=== PATIENT | female | born 1935 | race Caucasian/White ===

== ENCOUNTER 2021-02-24 17:21 | Inpatient (IN) | payer MEDICARE, OTHER ==
[~2021-02-24] VITALS: Ht 152.4 cm; Wt 51.3 kg
--- NOTE | 2021-02-24 17:43 | RAD ---
Single view chest dated 02/24/2021. No comparison available. Clinical data indication: Altered mental status. FINDINGS: Single upright portable exam performed. Heart and mediastinal contours are within normal limits. Lung s are somewhat hyperinflated but otherwise clear. No consolidation or pleural effusion. Calcified rig ht hilar lymph nodes. No pneumothorax. IMPRESSION: No acute radiographic abnormality. Electronically signed by: Aj Simental MD (02/24/2021 5:41 PM) [id number]
--- NOTE | 2021-02-24 17:48 | PHYS DOC ---
General Adult EDM: Chief Complaint: ALTERED MENTAL STATUS HPI: HPI: 85-year-old female presents via EMS for altered mental status. The patient is not able to give any history so the entire history comes from EMS and family. The patient signed herself out of the nursing facility 1 and half weeks ago. Osvaldo queen felt like she did not need to be there anymore. She has declined since that time. The patient has hardly had much to eat or drink starting yesterday and then again today. She has been acting more altered and saying the same thing over and over again. No reliable last known well. Patient is reported to have diabetes and CHF history. Family has been giving her medicines based on looking at [employer] for advice. The patient had a fall 1 week ago. No other reported falls or trauma. No other history is available. (ALYCIA GROVER DO) Review of Systems: Review of Systems: Unable to perform due to patient not answering questions. (ALYCIA GROVER DO) Physical Exam: PE: Constitutional: Well developed, well nourished, no acute distress. [] HENT: Normocephalic, atraumatic, scars on face and forehead. Bilateral external ears normal, oropharynx moist, no oral exudates, nose normal. [] Eyes: PERRLA, EOMI, conjunctiva normal, no discharge. [] Neck: No tenderness [] Cardiovascular: Heart rate 82, regular rhythm, no murmur [] Lungs & Thorax: Bilateral breath sounds clear to auscultation [] Abdomen: Bowel sounds normal, soft, no tenderness, no masses, no pulsatile masses. [] Skin: Warm, dry, no erythema, no rash. [] Back: No tenderness, no CVA tenderness. [] Extremities: No tenderness, no cyanosis, no clubbing, no edema. [] Neurologic: Retracts to pain, moans, occasionally repeats the same phrase. [] Psychologic: Unable to assess [] (ALYCIA GROVER DO) EKG: EKG: [] (ALYCIA GROVER DO) Radiology/Procedures: Radiology/Procedures: [] (ALYCIA GROVER DO) Heart Score: C/O Chest Pain: N/A Risk Factors: Risk Factors: DM, Current or recent (<one month) smoker, HTN, HLP, family history of CAD, obesity. Risk Scores: Score 0 - 3: 2.5% MACE over next 6 weeks - Discharge Home Score 4 - 6: 20.3% MACE over next 6 weeks - Admit for Clinical Observation Score 7 - 10: 72.7% MACE over next 6 weeks - Early Invasive Strategies (ALYCIA GROVER DO) Course & Med Decision Making: Course & Med Decision Making Pertinent Labs and Imaging studies reviewed. (See chart for details) The patient's work-up is pending. I am signing the patient out to Dr. Barbour at 1800. [] (ALYCIA GROVER DO) Course & Med Decision Making Patient's care taken over at checkout. Patient seems a little altered but can answer questions appropriately. Head CT with no acute findings. CT of the chest abdomen and pelvis without contrast was obtained due to patient's iodine allergy and was notable for pulmonary edema possibly in the chest, very large volume of stool, granulomatous disease, possible cirrhosis. Urinalysis notable for hyponatremia and hyperkalemia, CHEPE and elevated BUN with hypermagnesemia. Started on IV fluids. Given patient's course of mild confusion over the last few days and abnormal electrolytes with no obvious cause as of yet sepsis was added to the differential diagnosis as well as hypothyroidism and adrenal insufficiency. Appropriate cultures obtained, started on antibiotics and discussed patient with Dr. Murdock the trademark attorney who agreed that she should be admitted here to the hospital for further evaluation and treatment. (CHUCK BARBOUR MD) Dragon Disclaimer: Dragon Disclaimer: This electronic medical record was generated, in whole or in part, using a voice recognition dictation system. (ALYCIA GROVER DO) Departure Departure: Referrals: IVIS LAMAR MD (PCP) ALYCIA GROVER DO Feb 24, 2021 17:48 CHUCK BARBOUR MD Feb 24, 2021 23:12
--- NOTE | 2021-02-24 17:48 | EKG ---
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
--- NOTE | 2021-02-24 18:03 | RAD ---
CT head without contrast dated 02/24/2021. No comparison available. CLINICAL INDICATION: Altered mental status. Recent fall. TECHNIQUE: Contiguous axial imaging the head was performed from skull base to vertex. No contrast administered. One or more of the following individualized dose reduction techniques were utilized for this examinat ion: 1. Automated exposure control 2. Adjustment of the mA and/or kV according to patient size 3. Use of iterative reconstruction technique. FINDINGS: Ventricles and sulci are mildly prominent for age. No midline shift or mass effect. Mild patchy low d ensity in the deep/subcortical periventricular white matter. No hemorrhage or extra-axial collection. Posterior fossa and brainstem unremarkable. Visualized paranasal sinuses and mastoid air cells are grossly clear. No apparent calvarial abnormali ty. IMPRESSION: 1. No evidence of acute intracranial hemorrhage or mass. 2. Mild chronic small vessel ischemic changes and atrophy. Electronically signed by: Aj Simental MD (02/24/2021 6:00 PM) [id number]
[2021-02-24 18:25] LABS: BASO % 0 % (0-3); EOS # 0.1 x10^3/uL (0.0-0.7); EOS % 2 % (0-3); HEMATOCRIT 38.2 % (36.0-47.0); HEMOGLOBIN 12.9 g/dL (12.0-15.5); LYMPH # 1.1 x10^3/uL (1.0-4.8); LYMPH % 15 % (24-48); MEAN CORPUSCULAR HEMOGLOBIN 35 pg (25-35); MEAN CORPUSCULAR HGB CONC 34 g/dL (31-37); MEAN CORPUSCULAR VOLUME 103 fL (79-100); MONO # 0.8 x10^3/uL (0.0-1.1); MONO % 10 % (0-9); NEUT # 5.7 x10^3uL (1.8-7.7); NEUT % 73 % (31-73); PLATELET COUNT 116 x10^3/uL (140-400); RED BLOOD COUNT 3.72 x10^6/uL (3.50-5.40); RED CELL DISTRIBUTION WIDTH 13.8 % (11.5-14.5); WHITE BLOOD COUNT 7.7 x10^3/uL (4.0-11.0)
[2021-02-24 18:32] LABS: BILIRUBIN,URINE NEG (NEG); CLARITY,URINE CLEAR; COLOR,URINE YELLOW; GLUCOSE,URINE NEG (NEG); NITRITE,URINE NEG (NEG)
[2021-02-24 18:35] LABS: CALCIUM 8.9 mg/dL (8.5-10.1); GFR 16.8
[2021-02-24 18:36] LABS: RBC,URINE 0 /HPF (0-2)
[2021-02-24 18:37] LABS: BACTERIA,URINE 0 /HPF (0-FEW); SQUAMOUS EPITHELIAL CELL,UR OCC /LPF
[2021-02-24 18:41] LABS: ALBUMIN 3.4 g/dL (3.4-5.0); ALBUMIN/GLOBULIN RATIO 0.7 (1.0-1.7); TOTAL BILIRUBIN 0.9 mg/dL (0.2-1.0); TOTAL PROTEIN 8.3 g/dL (6.4-8.2)
[2021-02-24 18:46] LABS: CREATININE 2.7 mg/dL (0.6-1.0)
[2021-02-24 18:47] LABS: POTASSIUM 5.5 mmol/L (3.5-5.1)
[2021-02-24] MEDS ORDERED: IV RINGERS SOLUTION,LACTATED 1,000 ML IV ONE (21:00)
--- NOTE | 2021-02-24 22:38 | RAD ---
EXAM: CT CHEST, ABDOMEN, AND PELVIS WITHOUT CONTRAST INDICATION: Shortness of breath, falls, constipation COMPARISON: None TECHNIQUE: Helical CT imaging performed of the chest, abdomen and pelvis without the use of intraveno us contrast. Sagittal and coronal reformats were obtained. One or more of the following individualized dose reduction techniques were utilized for this examinat ion: 1. Automated exposure control 2. Adjustment of the mA and/or kV according to patient size 3. Use of iterative reconstruction technique. FINDINGS: CHEST: Thyroid gland and thoracic inlet: Thyroid gland is not visualized. No lymphadenopathy of the thoracic inlet. Heart and great vessels: Heart is normal in size. There are coronary artery calcifications. No perica rdial effusion. Thoracic aorta is normal in caliber. There is moderate calcified atherosclerosis in t he thoracic aorta clear. The left subclavian artery origin. Mediastinum and mustapha: There are calcified mediastinal and hilar lymph nodes. Lungs and pleura: Evaluation of the lungs limited by motion artifact. There is some interlobular sept al thickening and groundglass opacities in the apices suspicious for mild interstitial pulmonary kely a. Airways are thickened. No pleural effusion. There is a calcified granuloma in the right upper lobe . Chest wall and axillae: Chest wall is unremarkable. No axillary lymphadenopathy. Bones: No acute osseous abnormality. ABDOMEN AND PELVIS: Liver: There are multiple cysts in the right hepatic lobe. There are scattered hepatic granulomas. Croft ggestion of mild nodularity of the surface of the liver. Small amount of perihepatic fluid anteriorly . Gallbladder/Biliary Tree: There are surgical clips in the gallbladder fossa. Bile ducts are unremarka ble. Pancreas: Mild pancreatic atrophy. Spleen: There are calcified splenic granulomas. The spleen is enlarged measuring 13 cm. Adrenal Glands: Normal. Kidneys/Ureters/Bladder: Kidneys are normal in size. No hydronephrosis. Bilateral extrarenal pelvis disease. Ureters are nondilated. Urinary bladder is mildly distended. Reproductive Organs: Uterus is surgically absent. No adnexal mass. Stomach, small bowel, and colon: Stomach is unremarkable. There is no small bowel obstruction. There is a very large amount of stool throughout the colon. The appendix is normal. Vasculature: Severe calcified aortic atherosclerosis. No aortic aneurysm. Lymph Nodes: No lymphadenopathy. Peritoneum and retroperitoneum: There is a small amount of free fluid in the pelvis and mild mesenter ic edema, nonspecific. No free air. Bones: No acute osseous abnormality. IMPRESSION: 1. Limited exam due to motion artifact. 2. Findings suspicious for mild interstitial pulmonary edema in the chest. 3. Very large volume of stool. 4. Sequela of granulomatous disease. 5. Slightly nodular appearance of the liver. This could be related to technique but recommend correla tion for cirrhosis. 6. Mild splenomegaly. 7. Severe calcified aortic atherosclerosis. Electronically signed by: Nataly Amos MD (02/24/2021 10:36 PM) [id number]
[2021-02-24] MEDS ORDERED: MAGNESIUM CITRATE 296 ML SOLUTION. PO ONE (23:45)
[2021-02-25 00:18] VITALS: BP 129/73
[2021-02-25] MEDS ORDERED: ONDA-84 PO (00:56)
[2021-02-25] MEDS ORDERED: PANT40TA6 PO (00:56)
[2021-02-25] MEDS ORDERED: FURO20TA3 PO (00:56)
[2021-02-25] MEDS ORDERED: POTA10TA12 PO (00:56)
[2021-02-25] MEDS ORDERED: LACT1CAP6 PO (00:56)
[2021-02-25] MEDS ORDERED: LACT10SO26 PO (00:56)
[2021-02-25] MEDS ORDERED: XOPENEX1.25 MG/3 NEB (00:56)
[2021-02-25] MEDS ORDERED: INSU100I13 SQ (00:56)
[2021-02-25] MEDS ORDERED: LEVO88TA4 PO (00:56)
[2021-02-25] MEDS ORDERED: CARB15DR65 EACHEYE (00:56)
[2021-02-25] MEDS ORDERED: CALC500T31 PO (00:56)
[2021-02-25] MEDS ORDERED: SODI50SP NS (00:56)
[2021-02-25] MEDS ORDERED: CALC250T PO (00:56)
[2021-02-25] MEDS ORDERED: INSU100I17 SQ (00:56)
[2021-02-25] MEDS ORDERED: URSO500T3 PO (00:56)
[2021-02-25] MEDS ORDERED: LOSA50TA86 PO (00:56)
[2021-02-25] MEDS ORDERED: EZET10TA20 PO (00:56)
[2021-02-25] MEDS ORDERED: ASCO500C PO (00:56)
[2021-02-25] MEDS ORDERED: ESTR10TA VG (00:56)
[2021-02-25] MEDS ORDERED: CHOL10004 PO (00:56)
[2021-02-25] MEDS ORDERED: HYDR30CR61 TP (00:56)
[2021-02-25] MEDS ORDERED: DOCU-109 PO (00:56)
[2021-02-25] MEDS ORDERED: SPIR50TA4 PO (00:56)
[2021-02-25] MEDS ORDERED: TRAM50TA PO (00:56)
[2021-02-25] MEDS ORDERED: [UNRECOGNIZED DRUG - CODE] TP (00:56)
[2021-02-25 05:06] VITALS: BP 109/63
[2021-02-25 06:46] LABS: BASO % 1 % (0-3); EOS # 0.1 x10^3/uL (0.0-0.7); EOS % 1 % (0-3); HEMATOCRIT 32.9 % (36.0-47.0); HEMOGLOBIN 11.1 g/dL (12.0-15.5); LYMPH # 0.9 x10^3/uL (1.0-4.8); LYMPH % 15 % (24-48); MEAN CORPUSCULAR HEMOGLOBIN 34 pg (25-35); MEAN CORPUSCULAR HGB CONC 34 g/dL (31-37); MEAN CORPUSCULAR VOLUME 102 fL (79-100); MONO # 0.5 x10^3/uL (0.0-1.1); MONO % 8 % (0-9); NEUT # 4.4 x10^3uL (1.8-7.7); NEUT % 76 % (31-73); PLATELET COUNT 88 x10^3/uL (140-400); RED BLOOD COUNT 3.24 x10^6/uL (3.50-5.40); RED CELL DISTRIBUTION WIDTH 13.4 % (11.5-14.5); WHITE BLOOD COUNT 5.8 x10^3/uL (4.0-11.0)
[2021-02-25 07:06] LABS: ALBUMIN 2.5 g/dL (3.4-5.0); ALBUMIN/GLOBULIN RATIO 0.6 (1.0-1.7); CALCIUM 8.5 mg/dL (8.5-10.1); GFR 23.8; POTASSIUM 5.6 mmol/L (3.5-5.1); TOTAL BILIRUBIN 0.8 mg/dL (0.2-1.0); TOTAL PROTEIN 6.8 g/dL (6.4-8.2)
[2021-02-25] MEDS ORDERED: [UNRECOGNIZED DRUG - MIXTURE] TP PRN (10:45)
[2021-02-25] MEDS ORDERED: SODIUM CHLORIDE 0.65% NASAL SPRAY 45ML BOTTLE. NS PRN (10:45)
[2021-02-25] MEDS ORDERED: ESTRADIOL VG SCH (10:45)
[2021-02-25] MEDS ORDERED: CALCIUM CARBONATE 500 MG TABLET PO PRN (10:45)
[2021-02-25] MEDS ORDERED: DOCUSATE SODIUM 100 MG CAPSULE PO PRN (10:45)
[2021-02-25] MEDS ORDERED: HYDROCORTISONE 2.5% RECTAL CREAM 30GM TUBE. RC PRN (10:45)
[2021-02-25] MEDS ORDERED: LACTULOSE 20 GM/30 ML SOLUTION. PO SCH ×2 (11:00→16:00)
[2021-02-25] MEDS ORDERED: POLYVINYL ALCOHOL/POVIDONE/PF OPHTH SOLUTION DROPERETTE. OD PRN (11:00)
[2021-02-25] MEDS: FUROSEMIDE 20 MG TABLET PO SCH (11:10)
[2021-02-25] MEDS: LOSARTAN 50 MG TABLET. PO SCH (11:10)
[2021-02-25] MEDS: SPIRONOLACTONE 25 MG TABLET PO SCH (11:11)
[2021-02-25] MEDS ORDERED: ONDANSETRON ODT 4 MG TAB.RAPDIS PO PRN (11:15)
[2021-02-25 11:25] VITALS: BP 112/69
[2021-02-25] MEDS: INSULIN LISPRO 300 UNITS/3 ML VIAL. SQ SCH ×2 (12:00→17:06)
[2021-02-25] MEDS ORDERED: LEVALBUTEROL HCL NEB SCH (14:00)
[2021-02-25] MEDS: ALBUTEROL SULFATE 2.5 MG/3 ML NEBU. NEB SCH ×2 (14:50→19:30)
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
[2021-02-25] MEDS: DOCUSATE SODIUM 100 MG CAPSULE PO SCH ×2 (15:48→21:00)
[2021-02-25] MEDS: LACTULOSE 20 GM/30 ML SOLUTION. PO SCH ×2 (15:48→17:00)
[2021-02-25 15:50] VITALS: BP 110/66
[2021-02-25] MEDS ORDERED: CHOLECALCIFEROL (VITAMIN D3) 1,000 UNIT TABLET PO SCH (16:00)
[2021-02-25] MEDS: CALCIUM CARBONATE 500 MG TABLET PO SCH (17:00)
[2021-02-25] MEDS: ASCORBIC ACID 1,000 MG TABLET PO SCH (17:01)
[2021-02-25] MEDS: CHOLECALCIFEROL (VITAMIN D3) 1,000 UNIT TABLET PO SCH (17:20)
[2021-02-25 18:41] VITALS: BP 88/52
--- NOTE | 2021-02-25 19:00 | EKG ---
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
[2021-02-25] MEDS: IV NORMAL SALINE 1,000ML 1,000 ML IV SCH (19:42)
[2021-02-25] MEDS ORDERED: IV NORMAL SALINE 500ML 500 ML IV ONE (20:00)
[2021-02-25] MEDS: EZETIMIBE 10 MG TABLET PO SCH (21:06)
[2021-02-25] MEDS: URSODIOL 300 MG CAPSULE. PO SCH (21:06)
[2021-02-25] MEDS: LACTOBACILLUS RHAMNOSUS GG 1 CAPSULE. PO SCH (21:06)
[2021-02-25] MEDS: INSULIN GLARGINE SYRINGE. SQ SCH (21:07)
[2021-02-25 22:01] VITALS: BP 94/58
[2021-02-26] MEDS: ALBUTEROL SULFATE 2.5 MG/3 ML NEBU. NEB SCH ×3 (05:58→21:22)
[2021-02-26 06:39] VITALS: BP 94/54
[2021-02-26 07:23] LABS: CALCIUM 7.9 mg/dL (8.5-10.1); CREATININE 2.3 mg/dL (0.6-1.0); GFR 20.3; POTASSIUM 5.6 mmol/L (3.5-5.1)
[2021-02-26] MEDS ORDERED: LEVOTHYROXINE 88 MCG TABLET PO SCH (07:30)
[2021-02-26] MEDS: LACTOBACILLUS RHAMNOSUS GG 1 CAPSULE. PO SCH ×2 (08:04→20:49)
[2021-02-26] MEDS: PANTOPRAZOLE 40 MG TABLET. PO SCH (08:04)
[2021-02-26] MEDS: CALCIUM CARBONATE 500 MG TABLET PO SCH ×2 (08:04→16:21)
[2021-02-26] MEDS: FUROSEMIDE 20 MG TABLET PO SCH (08:05)
[2021-02-26] MEDS: IV NORMAL SALINE 1,000ML 1,000 ML IV SCH (08:06)
[2021-02-26] MEDS: INSULIN LISPRO 300 UNITS/3 ML VIAL. SQ SCH ×3 (08:10→17:00)
[2021-02-26] MEDS: URSODIOL 300 MG CAPSULE. PO SCH ×2 (08:12→20:50)
[2021-02-26] MEDS: DOCUSATE SODIUM 100 MG CAPSULE PO SCH ×2 (08:18→20:50)
[2021-02-26] MEDS: LOSARTAN 50 MG TABLET. PO SCH (08:18)
[2021-02-26] MEDS: SPIRONOLACTONE 25 MG TABLET PO SCH (08:18)
[2021-02-26 11:20] VITALS: BP 93/52
[2021-02-26] MEDS ORDERED: LACTULOSE 20 GM/30 ML SOLUTION. PO ONE (14:15)
[2021-02-26 16:02] VITALS: BP 100/55
--- NOTE | 2021-02-26 16:17 | RAD ---
EXAM: Abdomen, single view. HISTORY: Distention. COMPARISON: None. FINDINGS: A frontal view of the abdomen is obtained. There is moderate colonic stool. There is no roro dence of bowel obstruction. There are surgical clips within the right upper quadrant. IMPRESSION: Moderate colonic stool. Electronically signed by: Hattie Jay MD (02/26/2021 4:15 PM) [id number]
[2021-02-26] MEDS: CHOLECALCIFEROL (VITAMIN D3) 1,000 UNIT TABLET PO SCH (16:20)
[2021-02-26] MEDS: ASCORBIC ACID 1,000 MG TABLET PO SCH (16:21)
[2021-02-26 19:46] VITALS: BP 96/53
[2021-02-26] MEDS: EZETIMIBE 10 MG TABLET PO SCH (20:50)
[2021-02-26] MEDS: INSULIN GLARGINE SYRINGE. SQ SCH (20:55)
--- NOTE | 2021-02-26 23:21 | PN ---
DATE: 02/26/2021 SUBJECTIVE: The patient is resting, sitting comfortably in her chair, in no apparent distress. She is definitely more awake, alert, oriented to time, place and person. She apparently has multiple episodes of loose bowel movement yesterday. Her BUN is down from 166, down to 72. She continued to be somewhat borderline hypotensive, although she is asymptomatic. Her potassium is high. She is on spironolactone and losartan. PHYSICAL EXAMINATION: GENERAL: When I examined her, she was pale, but no jaundice, cyanosis or thyromegaly. No jugular distention. No limb edema. VITAL SIGNS: Heart rate was 83, blood pressure was 93/52, temperature was 97.9, respiratory rate was 18 and oxygen saturation was 96%. HEAD, EYES, EARS, NOSE AND THROAT: Normocephalic, atraumatic. NECK: Supple. HEART: Showed normal first and second heart sounds, no gallop, murmur. CHEST: Clear to auscultation, no crepitation or rhonchi. ABDOMEN: Distended, soft, nontender. NEUROLOGIC: She is definitely more awake, alert, responding appropriately. All cranial nerves intact. She moves extremities without difficulty. Her intake was 1270, no output was recorded. LABORATORY DATA: Her lab work this morning showed a white cell count 5800, hemoglobin 11, hematocrit 33, MCV 102, and a platelet count of 88,000 with a manual differential showed 76% polymorphs, 16% lymphocytes, 8% monocytes. Her serum sodium was 136, potassium 5.6, chloride 104, bicarbonate 22, anion gap of 10, BUN 43, creatinine 2.3, estimated GFR was 20 mL per minute, her glucose was 124, calcium was 7.9 and ammonia was 72 micromol per liters. ASSESSMENT: 1. Altered mental status due to hepatic encephalopathy, as her ammonia level was 166 micromol for which we started her on lactulose. Other medical problems include advanced liver cirrhosis, according her similar to her mom's. 2. 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 3. Type 2 diabetes mellitus. 4. Hypertension. 5. Hyperlipidemia. 6. Chronic kidney disease. 7. Chronic obstructive pulmonary disease. 8. Hyperkalemia, for which we discontinued her spironolactone as well as the losartan. I will discontinue her IV fluid for now as she is asymptomatic. PLAN: We will continue with lactulose once a day and repeat her labs tomorrow. Hopefully, transfer her to [facility]. JOSE G/MARYANN DR: Arjun TID: [id number]
[2021-02-26 23:28] VITALS: BP 96/55
[2021-02-27] MEDS: ALBUTEROL SULFATE 2.5 MG/3 ML NEBU. NEB SCH ×4 (03:15→21:27)
[2021-02-27 06:38] VITALS: BP 113/65
[2021-02-27 07:41] LABS: ALBUMIN 2.7 g/dL (3.4-5.0); ALBUMIN/GLOBULIN RATIO 0.7 (1.0-1.7); CALCIUM 8.3 mg/dL (8.5-10.1); GFR 23.8; POTASSIUM 5.1 mmol/L (3.5-5.1); TOTAL BILIRUBIN 0.8 mg/dL (0.2-1.0); TOTAL PROTEIN 6.8 g/dL (6.4-8.2)
[2021-02-27] MEDS: LACTOBACILLUS RHAMNOSUS GG 1 CAPSULE. PO SCH ×2 (07:54→20:47)
[2021-02-27] MEDS: DOCUSATE SODIUM 100 MG CAPSULE PO SCH ×2 (07:55→20:47)
[2021-02-27] MEDS: FUROSEMIDE 20 MG TABLET PO SCH (07:55)
[2021-02-27] MEDS: CALCIUM CARBONATE 500 MG TABLET PO SCH ×2 (07:55→17:17)
[2021-02-27] MEDS: PANTOPRAZOLE 40 MG TABLET. PO SCH (07:55)
[2021-02-27] MEDS: URSODIOL 300 MG CAPSULE. PO SCH ×2 (07:55→20:47)
[2021-02-27] MEDS: INSULIN LISPRO 300 UNITS/3 ML VIAL. SQ SCH ×3 (08:00→17:15)
--- NOTE | 2021-02-27 10:44 | DS ---
DATE OF DISCHARGE: 02/27/2021 ATTENDING PHYSICIAN: Dr. Murdock. FINAL DISCHARGE DIAGNOSES: 1. Hepatic encephalopathy, improved. 2. Cirrhosis of the liver. 3. Type 2 diabetes mellitus. 4. Hypertension. 5. Hyperlipidemia. 6. Chronic obstructive pulmonary disease. 7. Chronic kidney disease 8. Altered mentation, resolved. 9. Mild hyperkalemia. HISTORY AND PHYSICAL: The patient is an 85-year-old female with multiple medical issues, admitted to the ED with altered mentation. She had an ammonia level of 166. The tentative diagnosis for cirrhosis appears to be cryptogenic. PHYSICAL EXAMINATION: Please see the dictated note. PERTINENT LABORATORY AND X-RAY STUDIES: Admission hemoglobin was 12.9 g/dL, white count 7700. Chemistry panel, nonfasting blood sugar was 99, creatinine is 2 mg/dL, which appears to be baseline. Potassium 5.1 mEq. Sodium 134 mEq. TSH was 20. Ammonia level on admission was 166, repeated the next day was down to 52. COURSE IN THE HOSPITAL: The patient was admitted. She was started on scheduled lactulose with marked improvement. Follow up with ammonia level declined and she was back to her baseline mentation. Her appetite is still marginal, but her vital signs are stable. We will simplify her meds and we held some of her diuretics as she was clinically euvolemic. On the third hospital day, she was afebrile. She was alert. Her oxygen saturation are improved at 98%. She has supplemental oxygen as needed. Blood pressure was 113/65. Therefore, in talking with the family, they are agreeable for the patient to go to [facility] for continued rehabilitation. We continued her lactulose 30 grams b.i.d., ascorbic acid 500 mg b.i.d., carboxymethyl cellulose tears 4 times a day, cholecalciferol, vitamin D3 once a day, estradiol vaginal cream twice weekly, Zetia 10 mg daily, Anusol suppository p.r.n., insulin 8 units of NovoLog t.i.d. before meals and Lantus 8 units at bedtime, lactulose 30 mL b.i.d., Xopenex, Synthroid 88 mcg daily, losartan 50 mg daily, Protonix 40 mg daily, tramadol 50 mg every 8 hours p.r.n. pain and Ursodiol 500 mg b.i.d. For now, we held her calcium, docusate, Lasix, lactulose, potassium and lactobacillus as she did not require the diuretics and potassium level was high. She remains a FULL CODE. I discussed the case with the family. She was therefore discharged from our hospital in stable condition with explicit drug and followup care at [facility]. TOTAL DISCHARGE TIME SPENT: [address]: Cristin TID: [id number] CC: Joy Churchill
[2021-02-27 11:33] VITALS: BP 106/65
[2021-02-27 15:36] VITALS: BP 115/68
[2021-02-27] MEDS: ASCORBIC ACID 1,000 MG TABLET PO SCH (17:17)
[2021-02-27] MEDS: CHOLECALCIFEROL (VITAMIN D3) 1,000 UNIT TABLET PO SCH (17:17)
[2021-02-27 19:52] VITALS: BP 102/54
[2021-02-27] MEDS: EZETIMIBE 10 MG TABLET PO SCH (20:47)
[2021-02-27] MEDS: INSULIN GLARGINE SYRINGE. SQ SCH (20:50)
[2021-02-28] MEDS: ALBUTEROL SULFATE 2.5 MG/3 ML NEBU. NEB SCH (05:38)
[2021-02-28] MEDS: LEVOTHYROXINE 88 MCG TABLET PO SCH ×2 (06:00→08:30)
[2021-02-28 07:00] VITALS: BP 106/61
[2021-02-28] MEDS: URSODIOL 300 MG CAPSULE. PO SCH (08:24)
[2021-02-28] MEDS: CALCIUM CARBONATE 500 MG TABLET PO SCH (08:24)
[2021-02-28] MEDS: DOCUSATE SODIUM 100 MG CAPSULE PO SCH (08:25)
[2021-02-28] MEDS: PANTOPRAZOLE 40 MG TABLET. PO SCH (08:26)
[2021-02-28] MEDS: LACTOBACILLUS RHAMNOSUS GG 1 CAPSULE. PO SCH (08:26)
[2021-02-28] MEDS: FUROSEMIDE 20 MG TABLET PO SCH (08:26)
[2021-02-28] MEDS: INSULIN LISPRO 300 UNITS/3 ML VIAL. SQ SCH (08:29)
--- NOTE | 2021-03-01 09:15 | DS ---
DATE OF DISCHARGE: 02/28/2021 ADDENDUM ATTENDING PHYSICIAN: Dr. Murdock. The patient was discharged yesterday, but they did not have a ride from the [facility]. Therefore, they will come and get her this morning. Her final discharge diagnosis remain the same. The medication made the same. I did see her this morning, she is alert, she is eating breakfast independently. Her vital signs are stable. She was then discharged from our hospital to go to [facility] in stable condition with explicit drug and followup care. RADHA/FRANK DR: Cristin TID: [id number]
== END 2021-02-28 11:50 | DRG 441 ==
LOC: ER 17:21 → 1 SOUTH 23:26
PROVIDERS: ADMIT Internal Medicine; ATTEND Internal Medicine
DX: K72.90 Hepatic failure, unspecified without coma (principal); N17.0 Acute kidney failure with tubular necrosis; E87.1 Hypo-osmolality and hyponatremia; I13.0 Hypertensive heart and chronic kidney disease with heart failure and stage 1 through stage 4 chronic kidney disease, or unspecified chronic kidney disease; K76.6 Portal hypertension; E87.5 Hyperkalemia; E11.22 Type 2 diabetes mellitus with diabetic chronic kidney disease; E78.5 Hyperlipidemia, unspecified; I50.9 Heart failure, unspecified; J44.9 Chronic obstructive pulmonary disease, unspecified; K74.5 Biliary cirrhosis, unspecified; K74.60 Unspecified cirrhosis of liver; N18.9 Chronic kidney disease, unspecified; I95.9 Hypotension, unspecified; Z79.4 Long term (current) use of insulin; Z79.890 Hormone replacement therapy; Z79.899 Other long term (current) drug therapy; Z90.710 Acquired absence of both cervix and uterus; Z98.41 Cataract extraction status, right eye; Z98.42 Cataract extraction status, left eye; Z88.1 Allergy status to other antibiotic agents; Z88.0 Allergy status to penicillin; Z88.2 Allergy status to sulfonamides
CPT/HCPCS: 36415; 70450; 71045; 71250; 74018; 74176; 80048; 80053; 81001; 82140; 82947; 83605; 83735; 84443; 84484; 85025; 87040; 93005; 94640; 96361; 96365; J1815; J1956; J7040; J7120; Q0162; 97110; 97112; 97116; 97530; 97535; 99285-25; J7030; J7613